=== PATIENT | female | born 1990 | race Caucasian/White ===

== ENCOUNTER 2017-06-18 14:38 | Emergency (ER) | payer SELFPAY ==
[~2017-06-18] VITALS: Ht 160 cm; Wt 53.0 kg
[~2017-06-18 14:38] MED LIST: AMOX875T2 PO; LORTA5 PO; PRED20 PO; ZOFR4TAB3 SL
[2017-06-18 14:43] VITALS: BP 150/76; PULSE 93; RESP 20; TEMP 99.1; O2SAT 99
--- NOTE | 2017-06-18 15:09 | PD ---
HPI Chief Complaint: Abdominal Pain Time Seen by Provider: 14:51 Travel History International Travel<30 days: No Contact w/Intl Traveler<30days: No Traveled to known affect area: No History of Present Illness HPI C/O 2 MONTHS OF INTERMITTENT LOW ABD PAIN, A WHITISH PELVIC/VAGINAL D/C, DENIES N/V/D/FEVER AT ANY TIME. PATIENT ALSO C/O RLQ ABD PAIN, SHARP, NONRAD, 8/10 WHICH IS DIFFERENT FROM HER MIDLINE PAIN IN PAST. PCP: DENIES ALL:DENIES PSHX:DENIES PMHX: DENIES PFSH Past Medical History Developmental Delay: No Diminished Hearing: No Integumentary: Yes (PSORIASIS) Immunizations Current: Yes ?: Unknown LMP: 06/16/2017 : 1 Miscarriage: 1 Past Surgical History Oral Surgery: Yes (WISDOM TEETH) Social History Alcohol Use: Yes (OCCASIONAL) Tobacco Use: Yes (1PPD) Substance Use: No Allergies-Medications (Allergen,Severity, Reaction): Coded Allergies: No Known Allergies (Verified Allergy, Unknown, 06/18/17) Reported Meds & Prescriptions Reported Meds & Active Scripts Active Zofran ODT (Ondansetron HCl) 4 Mg Tab 4 Mg SL Q6H PRN FOR NAUSEA/VOMITING Deltasone (Prednisone) 20 Mg Tab 1 Tab PO BID Frontier 5-325 mg (Hydrocodone-Acetaminophen 5-325 mg) 1 Tab 1 Tab PO Q6H PRN Amoxicillin/Potassium Cla (Amoxicillin & Pot Clavulanate) 875 Mg Tab 1 Tab PO BID Review of Systems Except as stated in HPI: all other systems reviewed are Neg General / Constitutional: No: Fever Eyes: No: Visual changes HENT: No: Headaches Cardiovascular: No: Chest Pain or Discomfort Respiratory: No: Shortness of Breath Gastrointestinal: Positive: Abdominal Pain Genitourinary: Positive: Discharge Musculoskeletal: No: Pain Skin: No Rash Neurologic: No: Weakness Psychiatric: No: Depression Endocrine: No: Polydipsia Hematologic/Lymphatic: No: Easy Bruising Physical Exam Narrative GENERAL: SKIN: Warm and dry. HEAD: Atraumatic. Normocephalic. EYES: Pupils equal and round. No scleral icterus. No injection or drainage. ENT: No nasal bleeding or discharge. Mucous membranes pink and moist. NECK: Trachea midline. No JVD. CARDIOVASCULAR: Regular rate and rhythm. RESPIRATORY: No accessory muscle use. Clear to auscultation. Breath sounds equal bilaterally. GASTROINTESTINAL: Abdomen soft, non-tender, nondistended. BINDU RASMUSSEN AT BEDSIDE: PELVIC: VAG SWABS COLLECTED, MALODOROUS FISHY, MILD CMT WITH GRAYISH DISCHARGE FROM OS, NO STRAWBERRY CERVIX MUSCULOSKELETAL: Extremities without clubbing, cyanosis, or edema. No obvious deformities. NEUROLOGICAL: Awake and alert. No obvious cranial nerve deficits. Motor grossly within normal limits. Five out of 5 muscle strength in the arms and legs. Normal speech. PSYCHIATRIC: Appropriate mood and affect; insight and judgment normal. Data Data Last Documented VS Vital Signs Date Time Temp Pulse Resp B/P (MAP) Pulse Ox O2 Delivery O2 Flow Rate FiO2 06/18/17 17:14 71 14 97/53 (68) 100 Room Air 06/18/17 14:43 99.1 Orders Orders Complete Blood Count With Diff (06/18/17 14:56) Comprehensive Metabolic Panel (06/18/17 14:56) Lipase (06/18/17 14:56) Urinalysis - C+S If Indicated (06/18/17 14:56) Ct Abd/Pel W/O Iv Contrast (06/18/17 14:56) Iv Access Insert/Monitor (06/18/17 14:56) NPO (06/18/17 14:56) Ed Urine Pregnancytest Poc (06/18/17 14:56) Gc And Chlamydia Pcr (06/18/17 14:56) Wet Prep Profile (06/18/17 14:56) Morphine Inj (Morphine Inj) (06/18/17 16:30) Labs Laboratory Tests Test 06/18/17 15:00 06/18/17 15:10 Urine Color YELLOW Urine Turbidity CLEAR Urine pH 6.0 Urine Specific [place] 1.005 Urine Protein NEG mg/dL Urine Glucose (UA) NEG mg/dL Urine Ketones NEG mg/dL Urine Occult Blood NEG Urine Nitrite NEG Urine Bilirubin NEG Urine Leukocyte Esterase NEG Urine WBC 0-2 /hpf Urine Squamous Epithelial Cells 0-5 /hpf Microscopic Urinalysis Comment CULT NOT INDICATED White Blood Count 8.1 TH/MM3 Red Blood Count 4.24 MIL/MM3 Hemoglobin 13.4 GM/DL Hematocrit 39.9 % Mean Corpuscular Volume 94.0 FL Mean Corpuscular Hemoglobin 31.7 PG Mean Corpuscular Hemoglobin Concent 33.7 % Red Cell Distribution Width 11.8 % Platelet Count 260 TH/MM3 Mean Platelet Volume 8.2 FL Neutrophils (%) (Auto) 54.9 % Lymphocytes (%) (Auto) 34.7 % Monocytes (%) (Auto) 5.6 % Eosinophils (%) (Auto) 1.9 % Basophils (%) (Auto) 2.9 % Neutrophils # (Auto) 4.4 TH/MM3 Lymphocytes # (Auto) 2.8 TH/MM3 Monocytes # (Auto) 0.5 TH/MM3 Eosinophils # (Auto) 0.2 TH/MM3 Basophils # (Auto) 0.2 TH/MM3 CBC Comment DIFF FINAL Differential Comment Clue Cells (Wet Prep) PRESENT Vaginal Trichomonas (Wet Prep) NONE SEEN Vaginal Yeast (Wet Prep) NONE SEEN Blood Urea Nitrogen 13 MG/DL Creatinine 0.71 MG/DL Random Glucose 84 MG/DL Total Protein 7.2 GM/DL Albumin 3.7 GM/DL Calcium Level 8.3 MG/DL Alkaline Phosphatase 59 U/L Aspartate Amino Transf (AST/SGOT) 16 U/L Alanine Aminotransferase (ALT/SGPT) 19 U/L Total Bilirubin 0.3 MG/DL Sodium Level 139 MEQ/L Potassium Level 3.5 MEQ/L Chloride Level 106 MEQ/L Carbon Dioxide Level 24.9 MEQ/L Anion Gap 8 MEQ/L Estimat Glomerular Filtration Rate 101 ML/MIN Lipase 105 U/L [facility] Medical Decision Making Medical Screen Exam Complete: Yes Emergency Medical Condition: Yes Medical Record Reviewed: Yes Differential Diagnosis APPY V PID V STD V UTI V COLITIS V DIVERTICULITIS Narrative Course CT ONLY SHOWED KIDNEY STONE, BUT NO COLITIS/DIVERTIC/APPY OR PID......CLUE CELLS NOTED ON SWAB, C/W BV. Diagnosis Primary Impression: Bacterial vaginosis Additional Impression: Kidney stones Patient Instructions: Bacterial Vaginosis (ED), General Instructions, Kidney Stones (ED) Scripts Ondansetron Odt (Zofran Odt) 4 Mg Tab 4 MG SL Q6HR Y for Nausea/Vomiting, #10 TAB 0 Refills Prov: Jose Lakhani MD 06/18/17 Metronidazole (Flagyl) 500 Mg Tab 500 MG PO TID for Infection for 7 Days, #21 TAB 0 Refills Prov: Jose Lakhani MD 06/18/17 Tramadol (Ultram) 50 Mg Tab 50 MG PO Q4H Y for PAIN, #14 TAB 0 Refills Prov: Jose Lakhani MD 06/18/17 Disposition: 01 DISCHARGE HOME Condition: Stable Jose Lakhani MD Jun 18, 2017 15:09
[2017-06-18 15:22] LABS: AUTOMATED NEUTROPHIL # 4.4 TH/MM3 (1.8-7.7); BASOPHIL # 0.2 TH/MM3 (0-0.2); BASOPHIL % 2.9 % (0.0-2.0); EOSINOPHIL # 0.2 TH/MM3 (0-0.4); EOSINOPHIL % 1.9 % (0.0-4.0); HEMATOCRIT 39.9 % (35.0-46.0); HEMO FLAGS DIFF FINAL; LYMPH % 34.7 % (9.0-44.0); LYMPHOCYTE # 2.8 TH/MM3 (1.0-4.8); MEAN CORPUSCULAR HEMOGLOBIN 31.7 PG (27.0-34.0); MEAN CORPUSCULAR HGB CONC 33.7 % (32.0-36.0); MONO % 5.6 % (0.0-8.0); NEUT % 54.9 % (16.0-70.0); PLATELET COUNT 260 TH/MM3 (150-450); RED BLOOD COUNT 4.24 MIL/MM3 (4.00-5.30); RED CELL DISTRIBUTION WIDTH 11.8 % (11.6-17.2); WHITE BLOOD COUNT 8.1 TH/MM3 (4.0-11.0)
[2017-06-18 15:30] LABS: CHLORIDE 106 MEQ/L (98-107); POTASSIUM 3.5 MEQ/L (3.5-5.1); SODIUM (NA) 139 MEQ/L (136-145)
[2017-06-18 15:30] LABS: BLOOD, URINE NEG (NEG); GLUCOSE,URINE NEG (NEG); KETONE, URINE NEG (NEG); NITRITE,URINE NEG (NEG)
[2017-06-18 15:34] LABS: ANION GAP 8 MEQ/L (5-15); BICARBONATE 24.9 MEQ/L (21.0-32.0); BLOOD UREA NITROGEN 13 MG/DL (7-18)
[2017-06-18 15:35] LABS: URINE COLOR YELLOW (YELLW/STRAW)
[2017-06-18 15:36] LABS: ALT (GPT) 19 U/L (10-53)
[2017-06-18 15:36] LABS: COMMENT (UR) CULT NOT INDICATED; CULTURE IF INDICATED CULT NOT INDICATED; SQUAMOUS EPITHELIAL CELL URINE 0-5 /hpf (0-5); WBC, URINE 0-2 /hpf (0-5)
[2017-06-18 15:37] LABS: AST (GOT) 16 U/L (15-37); GLOMERULAR FILTRATION RATE 101 ML/MIN (>89)
[2017-06-18 15:38] LABS: TOTAL BILIRUBIN ADULT 0.3 MG/DL (0.2-1.0)
[2017-06-18 15:39] LABS: ALKALINE PHOSPHATASE 59 U/L (45-117)
[2017-06-18 15:50] VITALS: BP 114/59; PULSE 68; RESP 18; O2SAT 98
[2017-06-18] MEDS ORDERED: MORPHINE SULFATE 2 MG/ML INJ IV PUSH ONE (16:30)
--- NOTE | 2017-06-18 17:13 | RADRPT ---
EXAM DATE/TIME: 06/18/2017 15:30 [place] COMPARISON: No previous studies available for comparison. INDICATIONS : Right lower pelvic and flank pain. ORAL CONTRAST: No oral contrast ingested. RADIATION DOSE: 6.03 CTDIvol (mGy) MEDICAL HISTORY : None SURGICAL HISTORY : None. ENCOUNTER: Initial ACUITY: 4 - 6 months PAIN SCALE: 8/10 LOCATION: Right flank and pelvic TECHNIQUE: Volumetric scanning of the abdomen and pelvis was performed. Using automated exposure control and ad justment of the mA and/or kV according to patient size, radiation dose was kept as low as reasonably achievable to obtain optimal diagnostic quality images. DICOM format image data is available electro nically for review and comparison. FINDINGS: LOWER LUNGS: The visualized lower lungs are clear. LIVER: Homogeneous density without lesion. There is no dilation of the biliary tree. Small gallstones are noted. SPLEEN: Normal size without lesion. PANCREAS: Within normal limits. KIDNEYS: Normal in size and shape. There is no mass, stone, or hydronephrosis. ADRENAL GLANDS: Within normal limits. VASCULAR: There is no aortic aneurysm. BOWEL/MESENTERY: The stomach, small bowel, and colon demonstrate no acute abnormality. There is no free intraperitone al air or fluid. ABDOMINAL WALL: Within normal limits. RETROPERITONEUM: There is no lymphadenopathy. BLADDER: Tiny apparent 2 mm stone left UVJ without significant obstruction. REPRODUCTIVE: Within normal limits. INGUINAL: There is no lymphadenopathy or hernia. MUSCULOSKELETAL: Within normal limits for patient age. CONCLUSION: Probable 2 mm stone left UVJ without significant obstruction. Sandoval Hess MD FACR on June 18, 2017 at 17:10 Board Certified Radiologist. This report was verified electronically.
[2017-06-18 17:14] VITALS: BP 97/53; PULSE 71; RESP 14; O2SAT 100
[2017-06-18] MEDS ORDERED: METR-1 PO (17:38)
[2017-06-18] MEDS ORDERED: ZOFR4TAB3 SL (17:38)
[2017-06-18] MEDS ORDERED: TRAM50 PO (17:38)
[2017-06-18 19:54] LABS: CHLAMYDIA PCR NOT DETECTED (NOT DETECT); NEISSERIA PCR NOT DETECTED (NOT DETECT)
== END 2017-06-18 18:15 | disposition home or self-care (01) ==
LOC: PHED 14:38
DX: N76.0 Acute vaginitis (principal); B96.89 Other specified bacterial agents as the cause of diseases classified elsewhere; N20.0 Calculus of kidney; F17.200 Nicotine dependence, unspecified, uncomplicated
CPT/HCPCS: 74176; 80053; 81001; 83690; 84703; 85025; 87210; 87491; 87591; 96374; 99285; J2270